=== PATIENT | male | born 1995 | race American Indian/Alaskan Native ===

== ENCOUNTER 2018-05-31 22:03 | Emergency (ER) | payer MEDICAID ==
--- NOTE | 2018-05-31 22:27 | EDM.PDOCBH ---
ED HPI GENERAL MEDICAL PROBLEM - General Chief Complaint: Behavioral/Psych Stated Complaint: CONFUSION Time Seen by Provider: 05/31/18 22:15 Source of Information: Reports: EMS, EMS Notes Reviewed, Old Records, Other ( Social Service) History Limitations: Reports: Altered Mental Status, Language Barrier, Uncooperative - History of Present Illness INITIAL COMMENTS - FREE TEXT/NARRATIVE: Rodrick is a 23 year old male from [facility] who was transferred to [facility] for care home care. He has a PMH of TBI, Explosive PD, and EMR. He was placed this afternoon but did not adjust to staff and [facility]. EMS was summoned, and administered Ketamine 300 mcq for sedation. He arrives somnolent, in 4-pt restraints, with normal VS. Staff from [facility] have been called to return to [facility] for transfer. - Related Data Allergies Allergy/AdvReac Type Severity Reaction Status Date / Time No Known Allergies Allergy Verified 06/01/18 00:57 Home Meds: Home Meds Ca Carbonate/Vitamin D3/Vit K [Calcium + D Soft Chewable Tab] 1 each PO DAILY [History] Docusate Sodium 100 mg PO BID 06/01/18 [History] Levothyroxine 150 mcg PO DAILY 06/01/18 [History] Minocycline [Minocin] 100 mg PO BID 06/01/18 [History] [place]-3/DHA/Epa/Fish Oil [[place]-3 Fish Oil 1,000 MG Sfgl] 1,000 mg PO BID [History] Polyethylene Glycol 3350 4 tsp PO DAILY 06/01/18 [History] Prazosin HCl [Prazosin] 4 mg PO BEDTIME 06/01/18 [History] Prazosin HCl [Prazosin] 5 mg PO BEDTIME 06/01/18 [History] Sulfacetamide [Bleph-10 Ophth Soln] 1 applic TOP BID 06/01/18 [History] buPROPion HCl [Wellbutrin Xl] 300 mg PO DAILY 06/01/18 [History] cloZAPine 100 mg PO BEDTIME 06/01/18 [History] clonazePAM [Klonopin] 1 mg PO TID 06/01/18 [History] Past Medical History Psychiatric History: Reports: Learning Disability, Other (See Below) (Explosive PD, TBI) ED ROS GENERAL - Review of Systems Review Of Systems: Unable To Obtain ED EXAM, BEHAVIORAL HEALTH - Physical Exam Exam: See Below Exam Limited By: Language Barrier General Appearance: WD/WN, No Apparent Distress, Lethargic Eye Exam: Bilateral Eye: EOMI, Normal Inspection, PERRL Ears: Normal External Exam Nose: Normal Inspection Throat/Mouth: Normal Inspection Neck: Normal Inspection, Supple Respiratory/Chest: Lungs Clear, Normal Breath Sounds Cardiovascular: Regular Rate, Rhythm, No Murmur GI/Abdominal: Normal Bowel Sounds, Soft, No Organomegaly, No Distention, No Mass (Male) Exam: Deferred Rectal (Males) Exam: Deferred Back Exam: Normal Inspection Extremities: Normal Inspection Neurological: CN II-XII Intact, Opens Eyes to Commands Psychiatric: Incoherent, Inattentive Skin Exam: Warm, Dry, Intact, Normal color, No rash COURSE, BEHAVIORAL HEALTH COMP - Course Vital Signs: Last Vital Signs Temp Pulse 82 06/01/18 01:30 Resp 18 06/01/18 01:30 BP 103/63 06/01/18 01:30 Pulse Ox 100 06/01/18 01:30 Orders, Labs, Meds: Active Orders 24 hr Category Date Time Status Initiate Restraint Protocol [RC] BID Care 05/31/18 22:03 Active Haloperidol Lactate [Haldol] Med 06/01/18 00:01 Active 5 mg IM ONETIME PRN Medication Orders Haloperidol Lactate (Haldol) 5 mg IM ONETIME PRN PRN Reason: Agitation Medications Generic Name Dose Route Start Last Admin Trade Name Freq PRN Reason Stop Dose Admin Haloperidol Lactate 5 mg 06/01/18 00:01 Haldol IM ONETIME PRN Agitation Discontinued Medications Generic Name Dose Route Start Last Admin Trade Name Freq PRN Reason Stop Dose Admin Haloperidol Lactate Confirm 05/31/18 22:14 06/01/18 00:05 Haldol Administered 05/31/18 22:15 Not Given Dose 5 mg .ROUTE .STK-MED ONE Departure - Departure Time of Disposition: 01:25 Disposition: DC/Tfer to [facility] Ex Group [id number] Condition: Fair 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 SNOMED Code(s): 074734750 Code(s): F60.3 - BORDERLINE PERSONALITY DISORDER Status: Acute Current Visit: Yes Annotation/Comment:: Follow up with staff at [facility] - Problem List Review Problem List Initiated/Reviewed/Updated: Yes - My Orders Last 24 Hours: My Active Orders 05/31/18 22:03 Initiate Restraint Protocol [RC] BID 06/01/18 00:01 Haloperidol Lactate [Haldol] 5 mg IM ONETIME PRN - Assessment/Plan Last 24 Hours: My Active Orders 05/31/18 22:03 Initiate Restraint Protocol [RC] BID 06/01/18 00:01 Haloperidol Lactate [Haldol] 5 mg IM ONETIME PRN Plan: Follow up with staff at [facility]
[2018-06-01] MEDS ORDERED: Haloperidol Lactate 5 MG/ML SDV IM PRN (00:01)
[2018-06-01] MEDS: Haloperidol Lactate 5 MG/ML SDV ONE (00:05)
== END 2018-06-01 01:45 ==
LOC: FB.ED 22:03
DX: F60.3 Borderline personality disorder (principal)
CPT/HCPCS: 99284

== ENCOUNTER 2018-06-30 13:26 | Emergency (ER) | payer MEDICAID ==
[2018-06-30] MEDS ORDERED: Sodium Chloride 0.9% 10 ML Syringe FLUSH PRN (13:56)
[2018-06-30] MEDS ORDERED: Sodium Chloride 0.9% 1,000 ML IV SCH (14:00)
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
== END 2018-06-30 16:22 ==
LOC: FB.ED 13:26
DX: T68.XXXA Hypothermia, initial encounter (principal); F20.9 Schizophrenia, unspecified; Z79.899 Other long term (current) drug therapy; Z88.8 Allergy status to other drugs, medicaments and biological substances
CPT/HCPCS: 96360; 99284; J7030

== ENCOUNTER 2023-05-22 17:32 | Emergency (ER) | payer MEDICAID ==
[2023-05-22] MEDS ORDERED: LORazepam 1 MG Tab PO ONE (18:37)
== END 2023-05-22 18:47 ==
LOC: FB.ED 17:32
DX: F41.1 Generalized anxiety disorder (principal); F43.10 Post-traumatic stress disorder, unspecified; Z88.8 Allergy status to other drugs, medicaments and biological substances
CPT/HCPCS: 99284; A9270-GY